=== PATIENT | female | born 1945 | race Caucasian/White ===

== ENCOUNTER 2021-01-11 15:23 | Emergency (ER) | payer MEDICARE ==
[2021-01-11] MEDS ORDERED: Morphine 4 MG/ML VIAL ONE ×2 (16:32→18:52)
[2021-01-11] MEDS ORDERED: Ondansetron PF 4 MG/2 ML Vial ONE (16:32)
[2021-01-11 17:23] LABS: ALT (SGPT) 18 U/L (8-55); AST (SGOT) 26 U/L (5-34); Albumin 4.2 g/dL (3.4-4.8); Alkaline Phosphatase 109 U/L (40-110); Anion Gap 10 mmol/L (10-20); BUN (Urea Nitrogen) 15 mg/dL (9.8-20.1); Bilirubin, Total 0.4 mg/dL (0.2-1.2); Calc. Creatinine Clearance 0 mL/min (70-130); Calcium 10.1 mg/dL (7.8-10.44); Carbon Dioxide 35 mmol/L (23-31); Chloride 97 mmol/L (98-107); Globulin 3.3 g/dL (2.4-3.5); Glucose 88 mg/dL (83-110); Potassium 3.6 mmol/L (3.5-5.1); Protein, Total 7.5 g/dL (5.8-8.1); Sodium 138 mmol/L (136-145)
[2021-01-11 17:33] LABS: #Basophils 0.1 10x3/uL (0.0-0.2); #Monocytes 0.7 10x3/uL (0.0-1.1); #Neutrophils 5.3 10x3/uL (1.5-8.4); %Basophils 0.7 % (0.0-2.0); %Eosinophils 0.1 % (0.0-6.0); %Lymphocytes 19.8 % (18.0-47.0); %Monocytes 9.1 % (0.0-10.0); %Neutrophils 69.8 % (40.0-75.0); Hemoglobin 12.1 g/dL (12.0-15.5); Mean Corpuscular HGB CONC 31.6 g/dL (32.0-36.0); Mean Corpuscular Hemoglobin 30.3 pg (27.0-33.0); Mean Corpuscular Volume 95.8 fl (81.6-98.3); Mean Platelet Volume 8.5 fl (7.4-10.4); Platelet Count 276 10x3/uL (150-450); RBC Distribution Width 14.6 % (11.5-14.5); White Blood Cell (WBC) Count 7.6 10x3/uL (3.5-10.5)
[2021-01-11] MEDS ORDERED: methylPREDNISolone Sod Succ 40 MG VIAL ONE (18:06)
[2021-01-11] MEDS ORDERED: Famotidine/PF 20 mg/2ml Vial ONE (18:06)
[2021-01-11] MEDS ORDERED: diphenhydrAMINE 50 MG/ML VIAL ONE (18:06)
== END 2021-01-11 20:37 | disposition home or self-care (01) ==
LOC: CSHERS 15:23
DX: S20.211A Contusion of right front wall of thorax, initial encounter (principal); R10.11 Right upper quadrant pain; R91.1 Solitary pulmonary nodule; M81.0 Age-related osteoporosis without current pathological fracture; I10 Essential (primary) hypertension; J44.9 Chronic obstructive pulmonary disease, unspecified; F17.200 Nicotine dependence, unspecified, uncomplicated; W01.0XXA Fall on same level from slipping, tripping and stumbling without subsequent striking against object, initial encounter
CPT/HCPCS: 71045; 71260; 74177; 80053; 85025; 86850; 86900; 86901; 93005; 96374; 96375; 96376; J1200; J2270; J2405; J2920; S0028

== ENCOUNTER 2022-05-31 11:36 | Outpatient (CLI) | payer MEDICARE | END 2022-05-31 11:37 | disposition home or self-care (01) | LOC: CSHLAB 11:36 | PROVIDERS: ATTEND Family Medicine | DX: Z20.822 Contact with and (suspected) exposure to COVID-19 (principal) | CPT/HCPCS: 87811 ==